=== PATIENT | female | born 1990 | race Caucasian/White ===

== ENCOUNTER 2019-11-16 17:01 | Emergency (ER) | payer BC ==
[~2019-11-16] VITALS: Ht 172.7 cm; Wt 95.4 kg
--- NOTE | 2019-11-16 17:24 | PHYS DOC ---
General Adult EDM: Chief Complaint: SHORTNESS OF BREATH HPI: HPI: Patient is a 29 year old female presenting to the ED with a chief complaint of shortness of breath. Patient states that the symptoms started yesterday. Patient does state that she is a and is 28 weeks . Patient does admit to being an active smoker. Patient states that she feels like she has difficulty taking a deep breath. Patient also complains of palpitations. Patient denies any recent travel. Patient denies fever, chills, nausea, vomiting, dysuria. (JENNIFER LEWIS DO) Review of Systems: Review of Systems: Constitutional: Denies fever or chills. [] Eyes: Denies change in visual acuity. [] HENT: Denies nasal congestion or sore throat. [] Respiratory: Complains of shortness of breath [] Cardiovascular: Complains of palpitations [] GI: Denies abdominal pain, nausea, vomiting [] : Denies dysuria. [] Neurologic: Denies headache, focal weakness or sensory changes. [] (JENNIFER LEWIS DO) Heart Score: Risk Factors: Risk Factors: DM, Current or recent (<one month) smoker, HTN, HLP, family history of CAD, obesity. Risk Scores: Score 0 - 3: 2.5% MACE over next 6 weeks - Discharge Home Score 4 - 6: 20.3% MACE over next 6 weeks - Admit for Clinical Observation Score 7 - 10: 72.7% MACE over next 6 weeks - Early Invasive Strategies (JENNIFER LEWIS DO) Current Medications: Current Medications Medications (Trade) Dose Ordered Sig/Pedro Start Time Stop Time Status Last Admin Dose Admin Sodium Chloride 1,000 ml @ 1,000 mls/hr 1X ONCE 11/16/19 17:30 11/16/19 18:29 (JENNIFER LEWIS DO) Allergies: Allergies: Allergies Coded Allergies Type Severity Reaction Last Updated Verified No Known Drug Allergies 11/16/19 No (JENNIFER LEWIS DO) Physical Exam: PE: Constitutional: Well developed, well nourished, no acute distress, non-toxic appearance. [] HENT: Normocephalic, atraumatic Eyes: EOMI Neck: Normal range of motion, Supple Cardiovascular: Tachycardia Lungs & Thorax: Bilateral breath sounds clear to auscultation [] Abdomen: Bowel sounds normal, soft, no tenderness, gravid abdomen Extremities: No tenderness, ROM intact Neurologic: Alert and oriented X 3 (DEBBIEJENNIFERLASHELL Yoo DO) EKG: EKG: [EKG interpretation: 17: 37 on 11/16/2019 HR: 108 Sinus tachycardia Regular intervals Normal axis Nonspecific ST changes ] (KATIEJOCELYNN,JENNIFER E ) Radiology/Procedures: Radiology/Procedures: [] (DEBBIEJENNIFERLASHELL Yoo DO) Impression: PROCEDURE: CT ANGIOGRAPHY CHEST EXAM: CT Pulmonary Angiogram INDICATION: Reason: Dyspnea. SOB today. R/O PE. patient 25weeks, to do per dr. lima / Spl. Instructions: IV OMNI 350 80 MLS / History: TECHNIQUE: Multi-detector row images were acquired from the thoracic inlet through the upper abdomen with the use of IV contrast. Sagittal and coronal images were acquired from the transaxial data. MIP images of the pulmonary arteries were obtained. All CT scans performed at this facility utilize dose optimization techniques as appropriate to the exam, including the following: Automated exposure control and adjustment of the mA and/or KV according to patient size (this includes techniques or standardized protocols for targeted exams where dose is indication/reason for exam). IV CONTRAST: Administered COMPARISON: None FINDINGS: Adequate opacification of the pulmonary arteries. PULMONARY ARTERIES: No pulmonary emboli are identified. CARDIOVASCULAR: Unremarkable Aorta is normal caliber. MEDIASTINUM & NATASHA: No adenopathy or masses. LUNGS: No pulmonary infiltrate, nodule, or other focal abnormality. PLEURAL SPACE: No pleural effusions or pneumothorax. OSSEOUS & SOFT TISSUE: Unremarkable ABDOMEN: The visualized portions of the upper abdomen are unremarkable. IMPRESSION: Normal CT pulmonary angiogram. No specific findings to explain shortness of breath shown on CT. Electronically signed by: Hilario Tillman MD (11/16/2019 6:08 PM) [facility] [place] and SIGNED BY: HILARIO TILLMAN MD DATE: 11/16/19 180 (SONALI HUBBARD Jr. DO) Course & Med Decision Making: Course & Med Decision Making Pertinent Labs and Imaging studies reviewed. (See chart for details) Ordered labs, UA, IV fluids, EKG, troponin Due to patient's and presenting symptoms, PE should be considered. I have ordered a CT angiography of the chest. I discussed risks and dangers of a CT scan during but patient agrees to having this test done. She understands risks and dangers of a CAT scan. Patient states that she becomes more dyspneic when she is talking. Labs are wnl. Patient care turned over to Dr Hubbard at shift change. (JENNIFER LEWIS DO) Course & Med Decision Making Patient CARE was accepted from Dr. Diggs at 6:00 PM. At the time of his departure, as CT angio of the chest was pending to rule out pulmonary emboli. CTA returned with no acute findings. Findings were reviewed with patient and patient states she is feeling better at this time. (SONALI HUBBARD Jr. DO) Dragon Disclaimer: Dragon Disclaimer: This electronic medical record was generated, in whole or in part, using a voice recognition dictation system. (JENNIFER LEWIS DO) Departure Departure Impression: Primary Impression: Dyspnea Qualified Codes: R06.00 - Dyspnea, unspecified Additional Impression: Qualified Codes: Z34.90 - Encounter for supervision of normal , unspecified, unspecified trimester Disposition: HOME, SELF-CARE Condition: STABLE Referrals: MARIA ESTHER BEEBE (PCP) Patient Instructions: , Shortness of Breath JENNIFER LEWIS DO November 16, 2019 17:24 SONALI HUBBARD Jr., DO November 16, 2019 18:25
[2019-11-16 17:29] LABS: BASO # 0.1 x10^3/uL (0.0-0.2); BASO % 1 % (0-3); EOS # 0.1 x10^3/uL (0.0-0.7); EOS % 1 % (0-3); HEMATOCRIT 32.3 % (36.0-47.0); HEMOGLOBIN 11.3 g/dL (12.0-15.5); LYMPH # 2.2 x10^3/uL (1.0-4.8); LYMPH % 17 % (24-48); MEAN CORPUSCULAR HEMOGLOBIN 31 pg (25-35); MEAN CORPUSCULAR HGB CONC 35 g/dL (31-37); MEAN CORPUSCULAR VOLUME 90 fL (79-100); MONO # 0.8 x10^3/uL (0.0-1.1); MONO % 7 % (0-9); NEUT # 9.4 x10^3/uL (1.8-7.7); NEUT % 75 % (31-73); PLATELET COUNT 326 x10^3/uL (140-400); RED BLOOD COUNT 3.61 x10^6/uL (3.50-5.40); RED CELL DISTRIBUTION WIDTH 13.7 % (11.5-14.5); WHITE BLOOD COUNT 12.6 x10^3/uL (4.0-11.0)
[2019-11-16] MEDS ORDERED: IV NORMAL SALINE 1000ML BAG 1,000 ML IV ONE (17:30)
[2019-11-16 17:31] LABS: BILIRUBIN,URINE NEGATIVE (NEG); CLARITY,URINE CLEAR; NITRITE,URINE NEGATIVE (NEG); PROTEIN,URINE NEGATIVE (NEG-TRACE); UROBILINOGEN,URINE 0.2 mg/dL (0.2 mg/dL)
[2019-11-16 17:34] LABS: COLOR,URINE STRAW
[2019-11-16 17:37] LABS: CALCIUM 8.7 mg/dL (8.5-10.1); CREATININE 0.8 mg/dL (0.6-1.0); GFR 83.7; POTASSIUM 3.3 mmol/L (3.5-5.1)
[2019-11-16 17:37] LABS: BACTERIA,URINE MANY /HPF (0-FEW); RBC,URINE 0 /HPF (0-2); SQUAMOUS EPITHELIAL CELL,UR MANY /LPF
[2019-11-16 17:43] LABS: ALBUMIN/GLOBULIN RATIO 0.8 (1.0-1.7); TOTAL BILIRUBIN 0.1 mg/dL (0.2-1.0); TOTAL PROTEIN 6.8 g/dL (6.4-8.2)
[2019-11-16] MEDS ORDERED: IOHEXOL 350 MG/ML 100 ML VIAL. IV ONE (17:45)
[2019-11-16] MEDS ORDERED: CONTRAST GIVEN. MC PRN (18:00)
--- NOTE | 2019-11-16 18:10 | RAD ---
EXAM: CT Pulmonary Angiogram INDICATION: Reason: Dyspnea. SOB today. R/O PE. patient 25weeks, to do per dr. lima / Spl. Instructions: IV OMNI 350 80 MLS / History: TECHNIQUE: Multi-detector row images were acquired from the thoracic inlet through the upper abdomen with the use of IV contrast. Sagittal and coronal images were acquired from the transaxial data. MIP images of the pulmonary arteries were obtained. All CT scans performed at this facility utilize dose optimization techniques as appropriate to the exam, including the following: Automated exposure control and adjustment of the mA and/or KV according to patient size (this includes techniques or standardized protocols for targeted exams where dose is indication/reason for exam). IV CONTRAST: Administered COMPARISON: None FINDINGS: Adequate opacification of the pulmonary arteries. PULMONARY ARTERIES: No pulmonary emboli are identified. CARDIOVASCULAR: Unremarkable Aorta is normal caliber. MEDIASTINUM & NATASHA: No adenopathy or masses. LUNGS: No pulmonary infiltrate, nodule, or other focal abnormality. PLEURAL SPACE: No pleural effusions or pneumothorax. OSSEOUS & SOFT TISSUE: Unremarkable ABDOMEN: The visualized portions of the upper abdomen are unremarkable. IMPRESSION: Normal CT pulmonary angiogram. No specific findings to explain shortness of breath shown on CT. Electronically signed by: Umer Tillman MD (11/16/2019 6:08 PM) [facility] [place]
[2019-11-16 18:18] VITALS: BP 125/92
--- NOTE | 2019-11-17 07:22 | EKG ---
[facility] [address] [place] [address] Test Date: 2019-11-16 Test Time: 17:37:34 Pat Name: POOJA PHAM Department: Room: Gender: F Color Blender: : 1990 Requested By: JENNIFER LEWIS Order Number: [id number] Reading MD: Rusty Horne MD Measurements Intervals [place] Rate: 108 P: 45 LA: 132 QRS: 19 QRSD: 90 T: 36 QT: 340 QTc: 459 Interpretive Statements SINUS TACHYCARDIA Electronically Signed On 11-17-2019 12:24:39 CDT by Rusty Horne MD
== END 2019-11-16 18:48 | disposition home or self-care (01) ==
LOC: ER 17:01
DX: O99.513 Diseases of the respiratory system complicating pregnancy, third trimester (principal); R06.02 Shortness of breath; R00.2 Palpitations; O99.333 Smoking (tobacco) complicating pregnancy, third trimester; Z3A.28 28 weeks gestation of pregnancy
CPT/HCPCS: 36415; 71275; 80053; 81001; 84484; 85025; 87086; 93005; 99285; J7030; Q9967

== ENCOUNTER 2020-04-03 20:45 | Emergency (ER) | payer BC ==
[~2020-04-03] VITALS: Ht 167.6 cm; Wt 90.0 kg
[2020-04-03 21:08] VITALS: BP 116/85
[2020-04-03] MEDS ORDERED: PRED20TA PO (22:52)
[2020-04-03] MEDS ORDERED: HYDR-3164 PO (22:52)
--- NOTE | 2020-04-03 22:52 | PHYS DOC ---
Past Medical History Past Medical History: No Pertinent History Past Surgical History: Appendectomy, Tonsillectomy Additional Past Surgical Histo: LEFT ARM Smoking Status: Current Every Day Smoker Alcohol Use: None General Adult EDM: Chief Complaint: BACK PAIN - NO INJURY HPI: HPI: Patient is a 30 year old female presents with a chief complaint of right-sided lower back buttocks pain. Patient has been previously diagnosed by her primary care physician with sciatica. Patient is currently on gabapentin. Patient states pain is been ongoing for 3 months with very minimal improvement. Patient states she is also been prescribed Tylenol 3 which does help with her pain. Patient is neurovascularly intact she arrived by private vehicle ambulated into the ER with a steady gait. Treatment plan in the ER included Solu-Medrol and Loretto. Will discharge patient home on prednisone and Loretto. Patient advised to discuss possible outpatient MRI with PCP if pain continues. Review of Systems: Review of Systems: Constitutional: Denies fever or chills. [] Eyes: Denies change in visual acuity. [] HENT: Denies nasal congestion or sore throat. [] Respiratory: Denies cough or shortness of breath. [] Cardiovascular: Denies chest pain or edema. [] GI: Denies abdominal pain, nausea, vomiting, bloody stools or diarrhea. [] : Denies dysuria. [] Musculoskeletal: Positive back pain positive hip pain Integument: Denies rash. [] Neurologic: Denies headache, focal weakness or sensory changes. [] Endocrine: Denies polyuria or polydipsia. [] Lymphatic: Denies swollen glands. [] Psychiatric: Denies depression or anxiety. [] Heart Score: Risk Factors: Risk Factors: DM, Current or recent (<one month) smoker, HTN, HLP, family history of CAD, obesity. Risk Scores: Score 0 - 3: 2.5% MACE over next 6 weeks - Discharge Home Score 4 - 6: 20.3% MACE over next 6 weeks - Admit for Clinical Observation Score 7 - 10: 72.7% MACE over next 6 weeks - Early Invasive Strategies Allergies: Allergies: Allergies Coded Allergies Type Severity Reaction Last Updated Verified No Known Drug Allergies 11/16/19 No Physical Exam: PE: Constitutional: Well developed, well nourished, no acute distress, non-toxic appearance. [] HENT: Normocephalic, atraumatic, bilateral external ears normal, oropharynx moist, no oral exudates, nose normal. [] Eyes: PERRLA, EOMI, conjunctiva normal, no discharge. [] Neck: Normal range of motion, no tenderness, supple, no stridor. [] Cardiovascular:Heart rate regular rhythm, no murmur [] Lungs & Thorax: Bilateral breath sounds clear to auscultation [] Abdomen: Bowel sounds normal, soft, no tenderness, no masses, no pulsatile masses. [] Skin: Warm, dry, no erythema, no rash. [] Back: No tenderness, no CVA tenderness. [] Extremities: No tenderness, no cyanosis, no clubbing, ROM intact, no edema. [] Neurologic: Alert and oriented X 3, normal motor function, normal sensory function, no focal deficits noted. [] Psychologic: Affect normal, judgement normal, mood normal. [] Current Patient Data: Vital Signs: Vital Signs Date Time Temp Pulse Resp B/P (MAP) Pulse Ox O2 Delivery O2 Flow Rate FiO2 04/03/20 21:08 98.2 92 18 116/85 (95) 95 Room Air 98.2 EKG: EKG: [] Radiology/Procedures: Radiology/Procedures: [] Course & Med Decision Making: Course & Med Decision Making Pertinent Labs and Imaging studies reviewed. (See chart for details) [] Dragon Disclaimer: Dragon Disclaimer: This electronic medical record was generated, in whole or in part, using a voice recognition dictation system. Departure Departure Impression: Primary Impression: Sciatic leg pain Disposition: 01 HOME SELF CARE/HOMELESS Condition: STABLE Referrals: MARIA ESTHER BEEBE (PCP) Patient Instructions: Sciatica, Sciatica with [facility] Scripts Hydrocodone/Apap 5-325 (NORCO 5-325 TABLET) 1 Each Tablet 1 TAB PO PRN Q6HRS PRN for PAIN for 10 Days, #14 TAB 0 Refills Prov: ZAK DALAL DO 04/03/20 Prednisone (PREDNISONE) 20 Mg Tablet 1 TAB PO UD for 5 Days, #5 TAB 50mg po q day Prov: ZAK DALAL I DO 04/03/20 ZAK DALAL DO Apr 03, 2020 22:52
[2020-04-03] MEDS ORDERED: HYDROcodone/APAP 5/325MG 1 TAB TABLET PO ONE (23:00)
[2020-04-03] MEDS ORDERED: methylPREDNISolone SOD SUCC PF 125 MG/2 ML VIAL. IM ONE (23:00)
== END 2020-04-03 23:14 | disposition home or self-care (01) ==
LOC: ER 20:45
DX: M54.31 Sciatica, right side (principal); M25.551 Pain in right hip; F17.200 Nicotine dependence, unspecified, uncomplicated; Z90.89 Acquired absence of other organs; Z98.890 Other specified postprocedural states
CPT/HCPCS: 96372; 99283; J2930

== ENCOUNTER 2020-04-17 20:35 | Emergency (ER) | payer BC ==
[~2020-04-17] VITALS: Ht 175.3 cm; Wt 91.0 kg
[~2020-04-17 20:35] MED LIST: HYDR-3164 PO; PRED20TA PO
--- NOTE | 2020-04-17 21:00 | PHYS DOC ---
Past Medical History Past Medical History: Sciatica Past Surgical History: Appendectomy, Tonsillectomy Additional Past Surgical Histo: LEFT ARM Smoking Status: Current Every Day Smoker Alcohol Use: None General Adult EDM: Chief Complaint: LOWER BACK PAIN OR INJURY HPI: HPI: Patient is a 30 year old female who presents with complaints of right-sided low back pain that radiates down her buttocks and partially down her right leg. Patient states that she has a history of sciatica with sciatica pains. Patient states that she has an MRI scheduled for this coming at [facility]. Patient states she seen her doctor just last week and was given Flexeril/gabapentin 600 mg twice daily/Tylenol No. 3 is for pain which helped. Patient states that her pain has returned and wishes to have a steroid injection as this helped and the past with previous ER visits. Patient denies any current fever or chills, visual changes, nasal congestion cough or shortness of breath. Patient denies any chest pains or swelling of her extremities, abdominal pains, nausea, vomiting, diarrhea, or constipation. Patient denies any problems urinating, denies any STI concerns. Patient denies any pain in her joints, rashes on her skin, headaches, focal weaknesses, or sensory changes. Patient denies any tingling or loss of sensation down her right lower extremity. Patient denies any swelling of her glands, depressions, anxieties, homicidal or suicidal ideations. Review of Systems: Review of Systems: Constitutional: Denies fever or chills. Eyes: Denies change in visual acuity. HENT: Denies nasal congestion or sore throat. Respiratory: Denies cough or shortness of breath. Cardiovascular: Denies chest pain or edema. GI: Denies abdominal pain, nausea, vomiting, bloody stools or diarrhea. : Denies dysuria. Denies STI concerns Musculoskeletal: Denies joint pain. Complains of nontraumatic right sided low back pain with radiation through right buttocks and partially down the back of her right leg. Integument: Denies rash. Neurologic: Denies headache, focal weakness or sensory changes. Endocrine: Denies polyuria or polydipsia. Lymphatic: Denies swollen glands. Psychiatric: Denies depression or anxiety. Denies homicidal or suicidal ideations. Heart Score: Risk Factors: Risk Factors: DM, Current or recent (<one month) smoker, HTN, HLP, family history of CAD, obesity. Risk Scores: Score 0 - 3: 2.5% MACE over next 6 weeks - Discharge Home Score 4 - 6: 20.3% MACE over next 6 weeks - Admit for Clinical Observation Score 7 - 10: 72.7% MACE over next 6 weeks - Early Invasive Strategies Current Medications: Patient states she does not on any prescription medications at home at this time. Allergies: Allergies: Allergies Coded Allergies Type Severity Reaction Last Updated Verified No Known Drug Allergies 11/16/19 No Physical Exam: PE: Constitutional: Well developed, well nourished, no acute distress, non-toxic appearance. HENT: Normocephalic, atraumatic, bilateral external ears normal, oropharynx moist, no oral exudates, nose normal. Eyes: PERRLA, EOMI, conjunctiva normal, no discharge. Neck: Normal range of motion, no tenderness, supple, no stridor. Cardiovascular:Heart rate regular rhythm, no murmur Lungs & Thorax: Bilateral breath sounds clear to auscultation Abdomen: Bowel sounds normal, soft, no tenderness, no masses, no pulsatile masses. Skin: Warm, dry, no erythema, no rash. Back: No CVA tenderness, patient has low right-sided back pain to palpation. No loss of sensation on right lower extremity, no edema noted, +2 bilateral pedal pulses. Cap refill brisk at less than 2 seconds bilateral lower extremities. Full range of motion of bilateral lower extremities. Extremities: No tenderness, no cyanosis, no clubbing, ROM intact, no edema. Neurologic: Alert and oriented X 3, normal motor function, normal sensory function, no focal deficits noted. Psychologic: Affect normal, judgement normal, mood normal. Current Patient Data: Vital Signs: Vital Signs Date Time Temp Pulse Resp B/P (MAP) Pulse Ox O2 Delivery O2 Flow Rate FiO2 04/17/20 20:39 97.6 99 18 166/114 (131) 96 Room Air 97.6 EKG: EKG: [] Radiology/Procedures: Radiology/Procedures: [] Course & Med Decision Making: Course & Med Decision Making Pertinent Labs and Imaging studies reviewed. (See chart for details) 30-year-old female presents emergency department with complaints of sciatica pain on the right side that she has dealt with for what she describes as quite some time. Patient states that she has an appointment to evaluate her sciatica per MRI this coming at [facility]. Patient states that she recently seen her Dr. Medina this past week and was given Flexeril gabapentin and Tylenol 3 for pain however has ran out of her prescriptions. Patient is exam was consistent with sciatica pain, no signs of saddle anesthesia noted her exam was not concerning for cauda equina. Patient was given an IM injection 80 mg Depo-Medrol, 2 5/325 mg Vicodin p.o. in the emergency department. Upon reexamination patient states that she is starting to feel much better rating her pain from a 10/10 on a 1-10 pain scale down to a 3/10 on a 1-10 pain scale. Discussed with patient discharge instructions, home prescription medications, return to ER concerns, need to keep her appointment with [facility] for MRI. Return to ER concerns. Patient gave verbal understanding of these, had no further questions or concerns, patient discharged home without incident. Trisha Disclaimer: Trisha Disclaimer: This electronic medical record was generated, in whole or in part, using a voice recognition dictation system. Departure Departure Impression: Primary Impression: Sciatic nerve pain Qualified Codes: M54.31 - Sciatica, right side Disposition: 01 DC HOME SELF CARE/HOMELESS Condition: IMPROVED Referrals: MARIA ESTHER MEDINA (PCP) Patient Instructions: Sciatica Additional Instructions: Take medications as prescribed, follow-up with your physician soon, keep your MRI appointment this week. Return to the emergency department for worsening symptoms or other concerns. Scripts Hydrocodone/Apap 5-325 (NORCO 5-325 TABLET) 1 Each Tablet 1 TAB PO PRN Q6HRS PRN for PAIN, #12 TAB 0 Refills Prov: KIT JOHNSON APRN 04/17/20 KIT JOHNSON APRN Apr 17, 2020 21:00
[2020-04-17] MEDS ORDERED: ONDANSETRON ODT 4 MG TAB.RAPDIS. ONE (21:09)
[2020-04-17] MEDS ORDERED: HYDROcodone/APAP 5/325MG 1 TAB TABLET PO ONE (21:15)
[2020-04-17] MEDS ORDERED: ONDANSETRON ODT 4 MG TAB.RAPDIS. PO ONE (21:15)
[2020-04-17] MEDS ORDERED: methylPREDNISolone ACETATE 80 MG/ML VIAL. IM ONE (21:15)
[2020-04-17] MEDS ORDERED: HYDR-3164 PO (22:03)
[2020-04-17 22:07] VITALS: BP 142/82
== END 2020-04-17 22:13 | disposition home or self-care (01) ==
LOC: ER 20:35
DX: M54.41 Lumbago with sciatica, right side (principal); F17.200 Nicotine dependence, unspecified, uncomplicated; Z90.89 Acquired absence of other organs
CPT/HCPCS: 96372; 99283; J1040

== ENCOUNTER 2020-04-26 20:22 | Emergency (ER) | payer BC ==
[~2020-04-26] VITALS: Ht 175.3 cm; Wt 90.0 kg
[2020-04-26 22:34] VITALS: BP 117/73
== END 2020-04-26 23:00 | disposition left against medical advice (07) ==
LOC: ER 20:22
DX: M54.5 Low back pain (principal); Z53.21 Procedure and treatment not carried out due to patient leaving prior to being seen by health care provider